=== PATIENT | male | born 1950 | race Caucasian/White ===

== ENCOUNTER → 2023-04-13 14:53 | Outpatient (BNVA) | payer OTHER, SELFPAY | PROVIDERS: Family Provider Family Medicine; PCP Nurse Practitioner Family; Referring Provider Nurse Practitioner Family; Visit Provider Specialist | DX: G40.909 Epilepsy, unspecified, not intractable, without status epilepticus (principal); G31.84 Mild cognitive impairment of uncertain or unknown etiology; G31.83 Neurocognitive disorder with Lewy bodies; G90.3 Multi-system degeneration of the autonomic nervous system | CPT/HCPCS: 99205 ==

== ENCOUNTER 2023-05-03 06:22 | Outpatient (CLI) | payer OTHER, SELFPAY ==
--- NOTE | 2023-05-03 07:15 | MR_ITS ---
WS: [id number] MRI HEAD WITHOUT CONTRAST TECHNIQUE: Sagittal T1, T2 axial, T2 axial FLAIR, axial and coronal T1 images, axial susceptibility w eighted imaging, axial diffusion weighted images, and coronal T2 images were obtained. CLINICAL INFORMATION: R56.9 - Unspecified convulsions COMPARISON: None. FINDINGS: No evidence of restricted diffusion to suggest acute ischemia. Ventricular system and basilar cistern s are patent. Moderate small vessel changes. Moderate parenchymal volume loss. Small vessel changes i n the lonny. A few tiny chronic lacunar infarcts in the RIGHT cerebellum. Normal vascular flow voids a t the skull base. No extra-axial fluid collections. No mass of mass or mass effect. Mild mucosal thic kening in the ethmoid air cells. No hemosiderin on susceptibly weighted images. Normal optic chiasm and pituitary infundibulum. Modera te symmetric atrophy temporal lobes and hippocampal formations. IMPRESSION: 1. No evidence of restricted diffusion to suggest acute ischemia. 2. No hemosiderin on susceptibility-weighted images. 3. Moderate small vessel changes with moderate parenchymal volume loss. 4. Small vessel changes in the lonny. 5. 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
== END 2023-05-03 06:23 | disposition home or self-care (01) ==
LOC: RAD 06:23
PROVIDERS: Family Provider Family Medicine; PCP Nurse Practitioner Family; Visit Provider Specialist
DX: R56.9 Unspecified convulsions (principal); G31.84 Mild cognitive impairment of uncertain or unknown etiology; Z86.73 Personal history of transient ischemic attack (TIA), and cerebral infarction without residual deficits
CPT/HCPCS: 70551

== ENCOUNTER → 2023-06-01 12:12 | Outpatient (BNVA) | payer OTHER, SELFPAY | PROVIDERS: Family Provider Family Medicine; PCP Nurse Practitioner Family; Visit Provider Specialist | DX: R56.9 Unspecified convulsions (principal); G31.83 Neurocognitive disorder with Lewy bodies; F02.818 Dementia in other diseases classified elsewhere, unspecified severity, with other behavioral disturbance; G90.3 Multi-system degeneration of the autonomic nervous system | CPT/HCPCS: 95816 ==

== ENCOUNTER → 2023-07-07 12:40 | Outpatient (BNVA) | payer OTHER, SELFPAY | PROVIDERS: Family Provider Family Medicine; PCP Nurse Practitioner Family; Visit Provider Specialist | DX: G31.83 Neurocognitive disorder with Lewy bodies (principal); F02.818 Dementia in other diseases classified elsewhere, unspecified severity, with other behavioral disturbance; G90.3 Multi-system degeneration of the autonomic nervous system | CPT/HCPCS: 99214 ==